=== PATIENT | female | born 2000 | race Two or more races ===

== ENCOUNTER → 2020-07-03 09:58 | Outpatient (BNVA) | payer OTHER, SELFPAY | PROVIDERS: PCP Internal Medicine Sports Medicine; Visit Provider Internal Medicine Pulmonary Disease | DX: J45.50 Severe persistent asthma, uncomplicated (principal); Z79.899 Other long term (current) drug therapy; Z91.09 Other allergy status, other than to drugs and biological substances | CPT/HCPCS: 99212 ==

== ENCOUNTER → 2020-07-25 09:24 | Outpatient (BNVA) | payer OTHER, SELFPAY | PROVIDERS: PCP Internal Medicine Sports Medicine; Visit Provider Internal Medicine Pulmonary Disease | DX: J45.50 Severe persistent asthma, uncomplicated (principal); Z79.899 Other long term (current) drug therapy; Z91.09 Other allergy status, other than to drugs and biological substances | CPT/HCPCS: 99212 ==

== ENCOUNTER → 2020-08-28 14:54 | Outpatient (BNVA) | payer OTHER, SELFPAY | PROVIDERS: PCP Internal Medicine Sports Medicine; Visit Provider Internal Medicine Pulmonary Disease | DX: J45.50 Severe persistent asthma, uncomplicated (principal); Z91.09 Other allergy status, other than to drugs and biological substances | CPT/HCPCS: 99212 ==

== ENCOUNTER → 2020-10-24 10:50 | Outpatient (BNVA) | payer OTHER, SELFPAY | PROVIDERS: PCP Internal Medicine Sports Medicine; Visit Provider Internal Medicine Pulmonary Disease | DX: J45.50 Severe persistent asthma, uncomplicated (principal); Z91.09 Other allergy status, other than to drugs and biological substances | CPT/HCPCS: 99212 ==

== ENCOUNTER → 2021-07-31 15:28 | Outpatient (BNVA) | payer OTHER, SELFPAY | PROVIDERS: PCP Internal Medicine Sports Medicine; Visit Provider Internal Medicine Pulmonary Disease ==

== ENCOUNTER → 2021-09-26 14:34 | Outpatient (BNVA) | payer OTHER, SELFPAY | PROVIDERS: PCP Internal Medicine Sports Medicine; Visit Provider Internal Medicine Pulmonary Disease ==

== ENCOUNTER 2023-08-12 | Outpatient (REF) | payer OTHER, SELFPAY ==
[2023-08-13 11:50] LABS: Appearance Urine Cloudy; Color Urine Yellow; Glucose Urine UA Negative (Negative); Leukocyte Esterase Urine Large (3+) (Negative); Nitrite Urine Negative (Negative); PH 7.5 (5.0-9.0); UMIC TRIGGER UACC YES; Urine Blood Large (3+) (Negative); Urine Ketones Negative (Negative); Urine Protein Trace mg/dL (Neg-Trace)
[2023-08-13 12:47] LABS: Influenza A PCR NEGATIVE (Negative); Influenza B PCR NEGATIVE (Negative); Resp Syncy Virus RNA Qual PCR NEGATIVE (Negative); SARS COV2 PCR INHOUSE NEGATIVE (Negative)
[2023-08-13 14:03] LABS: Bacteria Urine Trace (None Seen); Hyaline Casts Urine 0-2 /LPF (0-2); RBC Urine >20 /HPF (0-2); UACC Culture Trigger YES; WBC Urine 21-50 /HPF (0-5)
== END 2023-08-12 00:01 | disposition home or self-care (01) ==
LOC: HO.HMGCLNP
PROVIDERS: Visit Provider Physician Assistant
DX: Z11.52 Encounter for screening for COVID-19 (principal); Z20.822 Contact with and (suspected) exposure to COVID-19; B34.9 Viral infection, unspecified; R82.90 Unspecified abnormal findings in urine
CPT/HCPCS: 0241U; 81001; 81003; 87086

== ENCOUNTER 2023-08-12 13:49 | Outpatient (AMB) | payer OTHER, SELFPAY ==
--- NOTE | 2023-08-12 15:30 | AM.OFFWIN_ITS ---
Intake Vital Signs 08/12/23 15:31 Height 5 ft 2 in Weight 63.049 kg BMI 25.4 BP 112/68 Blood Pressure Location Lt brachial Position Sitting Pulse 66 Pulse Source Pulse Oximeter Temp 96.7 F L Temp Source Temporal Artery Scan Pulse Oximetry (%) 98 Oxygen Delivery Method Room Air Intake Visit Reasons: EP vomiting headache 2wks [id number] Intake Note: pt is here today for vomoting headache started 2 weeks ago Allergies No Known Allergies Allergy (Verified 08/12/23 15:32) Do you need a note to return to daycare/school/sports/work: Yes HPI HPI Comments History of Present Illness Details 23-year-old who presents with fatigue, m alaise, myalgias, headache, vomiting, nausea, diarrhea, chills that started two weeks ago . Boyfriend sick with similar symptoms a few weeks ago.? Denies chest pain, shortness of breath, nausea, vomiting, abdominal pain, headache vision change, dizziness, weakness, changes in bowel or urinary habits. Patient reports she just can offer. Does not of she is . Physical exam very mild epigastric tenderness History and physical exam concerning for viral illness versus bronchitis versus flu versus COVID versus RSV.? Unlikely pneumonia, ACS, dissection, pulmonary embolism, acute respiratory distress, ICH, stroke, posterior stroke, acute abdomen, appendicitis, cholecystitis, pancreatitis, obstruction. No signs of acute abdomen, appendicitis, cholecystitis, diverticulitis, obstruction, pancreatitis. Epigastric pain likely secondary to nausea vomiting. I did explain to patient that if abdominal pain worsens or changes, she should go to the emergency department. Educated on worrisome signs and symptoms. Plan at this time viral testing will discharge patient home with supportive measures.? Educated patient on diagnosis and treatment plan, answered all question, patient verbalizes understanding.? At this time patient will be discharged home, advised to return with new or worsening symptoms.? Educated on worrisome signs and symptoms and when to return.? At this time I feel comfortable discharge home. Review of Systems Const Details: Constitutional : No Weight loss, + Fever, + Chills, + Fatigue, + Malaise ENT/Mouth : No sore throat, No Rhinorrhea Eyes: No Eye Pain, No Swelling, No Redness Cardiovascular : No Chest Pain, No SOB, No Dyspnea on Exertion, No Orthopnea, No Edema, No Palpitations Respiratory : No Cough, No Sputum, No Wheezing Gastrointestinal : No Nausea, + Vomiting, No Diarrhea, No Constipation, No abdominal Pain, No Hematochezia, No Melena Genitourinary : No Dysuria, No Urinary Frequency, No Hematuria, Musculoskeletal : No joint pain, No Myalgias, No Joint Swelling Skin : No Skin Lesions, No rash Neuro : No Weakness, No Numbness, No Dizziness, + Headache Psych : No Anxiety/Panic, No Depression All other systems reviewed and are negative All systems reviewed & are unremarkable except as noted in HPI and below Physical Exam Vital Signs: Last Vital Signs Temp 96.7 F L 08/12/23 15:31 Pulse 66 08/12/23 15:31 BP 112/68 08/12/23 15:31 Pulse Ox 98 08/12/23 15:31 Oxygen Delivery Method Room Air 08/12/23 15:31 BMI result Body Mass Index 25.4 vss Appearance: Alert.? Oriented X3.? No acute distress.? Head: Normocephalic, atraumatic, no step-offs or deformities Eyes: Pupils equal, round and reactive to light.? ENT: Pharynx normal.? Neck: Normal inspection.? Neck supple.? CVS: Normal heart rate and rhythm.? Pulses normal.? Respiratory: No respiratory distress.? Breath sounds normal.? Abdomen: Soft and mild tenderness/ soreness in epigatric region.? Negative Rovsing, McBurney's, Bella's. Normal bowel sounds Skin: Skin warm and dry.? Normal skin color.? Normal skin turgor.? Extremities: No lower extremity edema.? No calf ttp. 5/5 strength to bilateral upper and lower extremities Neuro: Oriented X 3.? No motor deficit.? No sensory deficit. CN 2-12 intact Assessment & Plan Assessment & Plan (1) Viral illness: Code(s): B34.9 - Viral infection, unspecified Plan Take your medications as prescribed. If you were prescribed antibiotics today, it is important that you take your medication to their entirety, do not skip any doses, do not finish them early. Follow-up with your primary care provider this week. Return to the emergency department with new or worsening symptoms. Such as fevers, chills, chest pain, shortness of breath, nausea, vomiting, dizziness, headache, vision changes, lethargy In case of emergency call 911 Orders: Orders SARS-CoV2/FLU/RSV Today B34.9 - Viral infection, unspecified UA CC w/rflx Micro + Cult Today B34.9 - Viral infection, unspecified Coding Level of Care Code Est Pt Level 3 (73391) Diagnoses Viral illness B34.9
[2023-08-12 15:31] VITALS: BP 112/68; PULSE 66; TEMP 35.9; O2SAT 98; BMI 25.4
== END 2023-08-12 16:19 | disposition home or self-care (01) ==
PROVIDERS: PCP Internal Medicine Sports Medicine; Visit Provider Physician Assistant
DX: B34.9 Viral infection, unspecified (principal); Z32.02 Encounter for pregnancy test, result negative
CPT/HCPCS: 81003; 81025; 99213

== ENCOUNTER 2023-09-30 10:21 | Outpatient (AMB) | payer OTHER, SELFPAY ==
[2023-09-30 10:23] VITALS: BP 96/60; PULSE 108; O2SAT 98; BMI 25.4
--- NOTE | 2023-09-30 10:23 | MHC.OFFVIS ---
Intake Vital Signs 09/30/23 10:23 Height 5 ft 2 in Weight 138 lb 14.259 oz BMI 25.4 BP 96/60 Blood Pressure Location Rt brachial Position Sitting Pulse 108 H Pulse Source Doppler Pulse Oximetry (%) 98 Oxygen Delivery Method Room Air Intake Visit Reasons: asthma Allergies No Known Allergies Allergy (Verified 09/30/23 10:29) HPI asthma HPI Details 23-year-old lady, nonsmoker, followed for underlying severe persistent allergic asthma and environmental allergies. Patient has been approved for Xolair, however she decided not to go ahead with injections and she continued on Symbicort, duo nebs, and albuterol MDI with good control of her symptoms. Unfortunately, her insurance is no longer covering Symbicort. She denies any recent exacerbations. [facility] Social History (Updated 09/30/23 @ 10:27 by Mell Kam [facility]) Patient Tobacco Use Status: Never used Tobacco Tobacco use type: Cigarette Review of Systems Const Denies daytime sleepiness, Denies excessive sweating, Denies fatigue, Denies fever(s), Denies lethargy, Denies malaise, Denies night sweats, Denies snoring and Denies weight loss Eyes Denies blurry vision and Denies itchy eyes ENT Denies nasal congestion, Denies post nasal drip, Denies sinus pain, Denies sinus pressure and Denies other ( Thrush) Card Denies chest pain, Denies pedal edema, Denies dyspnea, Denies orthopnea and Denies paroxysmal nocturnal dyspnea Resp Denies cough, Denies hemoptysis, Denies excessive phlegm production, Denies dyspnea, Denies snoring and Denies wheezing GI Denies abdominal pain and Denies heartburn Musc Denies myalgias, Denies arthralgias and Denies joint swelling Skin/Breast Denies rash Neuro Denies memory loss and Denies seizure-like activity Psych Denies abnormal sleep pattern, Denies anxiety and Denies memory loss Endo Denies excessive sweating, Denies fatigue and Denies heat intolerance Param/Lymph Denies easy bruising Aller/Immun Denies itchy eyes, Denies seasonal rhinorrhea and Denies wheezing Physical Exam Vital Signs: Last Vital Signs Pulse 108 H 09/30/23 10:23 BP 96/60 09/30/23 10:23 Pulse Ox 98 09/30/23 10:23 Oxygen Delivery Method Room Air 09/30/23 10:23 BMI result Body Mass Index 25.4 Const General: no acute distress and alert Nutritional Appearance: not obese Orientation/consciousness: Other orientation findings ( oriented) HEENT Head: Yes atraumatic Eyes General: appearance normal, both eyes and all related structures Sclerae: sclerae normal EOM: EOMs intact bilaterally Neck Neck: Yes supple Lymphatic: no lymphadenopathy noted Resp Effort & Inspection: normal respiratory effort and no use of accessory muscles Auscultation: clear to auscultation bilaterally Cardio Rate: regular rate Rhythm: regular rhythm Heart sounds: no gallops, no murmurs and no rubs Skin General skin exam: other ( warm) Extrem General: No clubbing, No cyanosis and No edema Assessment & Plan Assessment & Plan (1) Severe persistent allergic asthma: Code(s): J45.50 - Severe persistent asthma, uncomplicated Plan: Good control on Symbicort, albuterol MDI, nebs. Secondary to insurance reasons will switch Symbicort to Advair HFA 230. Continue albuterol MDI/nebs. (2) Environmental allergies: Code(s): Z91.09 - Other allergy status, other than to drugs and biological substances Plan: Well controlled. Continue on Singulair. Medications: New fluticasone propion-salmeterol 230-21 mcg/actuation (Advair HFA) 2 puffs inhalation BID 12 grams 6RF 30 days Discontinued Symbicort 160-4.5 mcg/actuation (budesonide-formoterol) Discontinued Reason: Doctor's Order 2 puffs inhalation BID 90 days 30.6 grams 6RF NS Coding Level of Care Code Est Pt Level 4 (38593) Diagnoses Severe persistent allergic asthma J45.50 Environmental allergies Z91.09
== END 2023-09-30 10:32 | disposition home or self-care (01) ==
PROVIDERS: PCP Internal Medicine Sports Medicine; Visit Provider Internal Medicine Pulmonary Disease
DX: J45.50 Severe persistent asthma, uncomplicated (principal); Z91.09 Other allergy status, other than to drugs and biological substances
CPT/HCPCS: 99214

== ENCOUNTER → 2023-09-30 10:21 | Outpatient (BNVA) | payer OTHER, SELFPAY | PROVIDERS: PCP Internal Medicine Sports Medicine; Visit Provider Internal Medicine Pulmonary Disease ==

== ENCOUNTER 2024-05-31 08:12 | Outpatient (AMB) | payer OTHER, SELFPAY ==
[2024-05-31 09:37] VITALS: BP 120/80; PULSE 62; TEMP 36.6; O2SAT 100; BMI 25.6
--- NOTE | 2024-05-31 09:37 | AM.OFFWIN_ITS ---
Intake Vital Signs 05/31/24 09:37 Height 5 ft 2 in Weight 140 lb BMI 25.6 BP 120/80 Blood Pressure Location Lt brachial Position Sitting Pulse 62 Pulse Source Pulse Oximeter Temp 97.9 F Temp Source Temporal Artery Scan Pulse Oximetry (%) 100 Intake Visit Reasons: EP eye infection on lash line? LT eye swelling Intake Note: pt is here eye infection in lashline due to possible lash extension Patient Tobacco Use Status: Never used Tobacco Allergies No Known Allergies Allergy (Verified 05/31/24 09:38) Do you need a note to return to daycare/school/sports/work: No HPI EP eye infection on lash line? LT eye swelling HPI Details This note is constructed using voice recognition software. While every effort has been made to ensure accuracy, search engine optimization analyst errors may have been included. The patient is a 23 year old female who presents to the clinic today with left upper eyelid swelling since yesterday. She notes that she just had artificial eyelash extensions placed, and the symptoms developed shortly after. She has no pain, no discharge, no itch. She denies any change in her vision or ability to see. She denies fever, chills, cough, shortness of breath, or other URI symptoms. She does not wear contacts or glasses. [facility] Social History (Updated 09/30/23 @ 10:27 by VIOLETTA Brown) Patient Tobacco Use Status: Never used Tobacco Tobacco use type: Cigarette Review of Systems Const All systems reviewed & are unremarkable except as noted in HPI and below Physical Exam Vital Signs: Last Vital Signs Temp 97.9 F 05/31/24 09:37 Pulse 62 05/31/24 09:37 BP 120/80 05/31/24 09:37 Pulse Ox 100 05/31/24 09:37 BMI result Body Mass Index 25.6 Const General: cooperative, healthy appearing, comfortable, no acute distress and well developed Orientation/consciousness: patient oriented x3 Limitations: no limitations Eyes Other: Hordeolum present to left upper eyelid Visual Busby: normal visual busby by confrontation Conjunctivae: conjunctivae normal Sclerae: sclerae normal Corneas: corneas normal Pupils: Equal, round and reactive pupils present EOM: EOMs intact bilaterally Direct Ophthalmoscopy: normal light reflex and no photophobia Resp Effort & Inspection: normal respiratory effort and able to speak in complete sentences Neuro General: patient oriented x3 Cranial nerves: Yes Equal, round and reactive pupils present Assessment & Plan Assessment & Plan (1) Hordeolum externum left upper eyelid: Code(s): H00.014 - Hordeolum externum left upper eyelid Plan: Advised consideration of removal eyelash extensions. Advised warm compresses minimum 4 times per day. Erythromycin ointment prescribed for symptomatic management. Advised follow up with worsening or failure to resolve. Plan See above for full details and plan. Medications: New erythromycin 0.5 inches ophthalmic (eye) TID 7 days 3.5 grams 0RF Coding Level of Care Code Est Pt Level 3 (56036) Diagnoses Hordeolum externum left upper eyelid H00.014
== END 2024-05-31 10:24 | disposition home or self-care (01) ==
PROVIDERS: PCP Internal Medicine Sports Medicine; Visit Provider Registered Nurse
DX: H00.014 Hordeolum externum left upper eyelid (principal)

== ENCOUNTER → 2024-05-31 08:12 | Outpatient (BNVA) | payer OTHER, SELFPAY | PROVIDERS: PCP Internal Medicine Sports Medicine ==

== ENCOUNTER 2024-10-01 13:03 | Outpatient (AMB) | payer OTHER, SELFPAY ==
[2024-10-01 13:07] VITALS: BP 102/70; PULSE 86; O2SAT 100; BMI 25.4
--- NOTE | 2024-10-01 13:07 | A.OFFVIS_ITS ---
Vital Signs 10/01/24 13:07 Height 5 ft 2 in Weight 138 lb 14.259 oz BMI 25.4 BP 102/70 Blood Pressure Location Lt brachial Position Sitting Pulse 86 Pulse Source Pulse Oximeter Pulse Oximetry (%) 100 Oxygen Delivery Method Room Air Intake Visit Reasons: asthma Electrophysiology Technician Required: No Allergies No Known Allergies Allergy (Verified 10/01/24 13:09) HPI HPI asthma: Details: 24-year-old lady, nonsmoker, followed for underlying severe persistent allergic asthma and environmental allergies. Patient has been approved for Xolair, however she decided not to go ahead with injections and she continued on Breo, duo nebs, and albuterol MDI. Unfortunately, recently she she had to be switched to Symbicort for insurance reasons with significantly worsening symptom control. Patient also had exacerbation of her asthma in the beginning of the months from which she has recovered to baseline. [facility] Social History Patient Tobacco Use Status: Never used Tobacco Tobacco use type: Cigarette Review of Systems Const Denies daytime sleepiness, Denies excessive sweating, Denies fatigue, Denies fever(s), Denies lethargy, Denies malaise, Denies night sweats, Denies snoring and Denies weight loss Eyes Denies blurry vision and Denies itchy eyes ENT Denies nasal congestion, Denies post nasal drip, Denies sinus pain, Denies sinus pressure and Denies other ( Thrush) Card Denies chest pain, Denies pedal edema, Denies dyspnea, Denies orthopnea and Denies paroxysmal nocturnal dyspnea Resp Denies cough, Denies hemoptysis, Denies excessive phlegm production, Denies dyspnea, Denies snoring and Denies wheezing GI Denies abdominal pain and Denies heartburn Musc Denies myalgias, Denies arthralgias and Denies joint swelling Skin/Breast Denies rash Neuro Denies memory loss and Denies seizure-like activity Psych Denies abnormal sleep pattern, Denies anxiety and Denies memory loss Endo Denies excessive sweating, Denies fatigue and Denies heat intolerance Param/Lymph Denies easy bruising Aller/Immun Denies itchy eyes, Denies seasonal rhinorrhea and Denies wheezing Physical Exam Vital Signs: Last Vital Signs Pulse 86 10/01/24 13:07 BP 102/70 10/01/24 13:07 Pulse Ox 100 10/01/24 13:07 Oxygen Delivery Method Room Air 10/01/24 13:07 BMI result Body Mass Index 25.4 Const General: no acute distress and alert Nutritional Appearance: not obese Orientation/consciousness: Other orientation findings ( oriented) HEENT Head: Yes atraumatic Eyes General: appearance normal, both eyes and all related structures Sclerae: sclerae normal EOM: EOMs intact bilaterally Neck Neck: Yes supple Lymphatic: no lymphadenopathy noted Resp Effort & Inspection: normal respiratory effort and no use of accessory muscles Auscultation: clear to auscultation bilaterally Cardio Rate: regular rate Rhythm: regular rhythm Heart sounds: no gallops, no murmurs and no rubs Skin General skin exam: other ( warm) Extrem General: No clubbing, No cyanosis and No edema Assessment & Plan Assessment & Plan (1) Severe persistent allergic asthma: Code(s): J45.50 - Severe persistent asthma, uncomplicated Category: Medical Plan: Poor control on Symbicort, switch to Breo as it was providing better control prior. Continue albuterol MDI, duo nebs, and Singulair. (2) Environmental allergies: Code(s): Z91.09 - Other allergy status, other than to drugs and biological substances Category: Medical Plan: Suboptimal control on Singulair, if fails to be controlled, may readdress Xolair. Medications: New montelukast 10 mg PO BEDTIME 30 tabs 6RF fluticasone furoate-vilanterol 200-25 mcg/dose (Breo Ellipta) 1 inh inhalation DAILY 1 ea 6RF Refilled ipratropium-albuterol 0.5 mg-3 mg(2.5 mg base)/3 mL 3 mL inhalation Q4-6H PRN 180 mL 6RF wheezing 30 days J45.50 - Severe persistent asthma, uncomplicated albuterol sulfate 90 mcg/actuation 2 puffs inhalation Q4-6H PRN 1 ea 6RF shortness of breath or wheezing 30 days J45.50 - Severe persistent asthma, uncomplicated Discontinued budesonide-formoterol 160-4.5 mcg/actuation (Symbicort) Discontinued Reason: Doctor's Order 2 puffs inhalation BID 10.2 grams 6RF Coding Level of Care Code Est Pt Level 4 (10544) Diagnoses Severe persistent allergic asthma J45.50 Environmental allergies Z91.09
--- OUTSIDE RECORDS SUMMARY | 2024-10-01 13:17 | XMS_ITS | Clinical Summary ---
Author Organization [facility] Address [address] [place] [phone] Phone Care Team Providers Care Bobbin Coil Winder Name Role Phone Unavailable Primary Care Provider Unavailabl e Immunizations Name Administration Dates Next Due DTaP 08/08/2003, 1,01/11/2000,11/01,1999 H1N1 07/04/2009 HPV, Quadrivalent 10/14/2012,06/04/2012,03/26/20 12 Hep B, ped/adol 12/09/2000,03/31/2000,01/11/2000 Hib (PRP-T) 09/05/2000, 0,1999,09/18 IPV 08/08/2003, 1,1999,09/18 Influenza 07/24/2009,09/10/2005,07/30/2002 Influenza, injectable, quadr ivalent, preservative free 06/11/2014 Influenza, injectable, trivalent 05/21/2012,08/01 MMR 08/30/2004,09/05/2000 Meningococcal Conj (Menactra) MCV4P 04/21/2017,0 03/26/2011 Pneumococcal Conjugate 07/03/2001,09/05/2000, Pneumococcal Polysaccharide 03/31/2000 Tdap 03/26/2011 Varicella 01/08/2008,07/03/2000 Family History Relation Name Status Comments Maternal Grandfather Materna l Uncle: depression Maternal Grandmother Materna l Aunt: asthma, Type 2 diabetes, bipolar, anxiety, migraine, premature , miscarriage Mother Mother: allergi es, asthma, miscarriage Other Siblings: broth er: asthma Social History Tobacco Use Types Packs/Day Years Used Date Smoking Tobacco: Never Assessed Comments Unknown Sex and Gender Information Value Date Recorded Sex Assigned at Not on file Legal Sex Female 9:57 AM EST Gender Identity Not on file Sexual Orientation Not on file Last Filed Vital Signs Vital Sign Reading Time Taken Comments Blood Pressure 98/59 04/21/2017 12:00 AM EDT Pulse 81 04/21/2017 12:00 AM EDT Temperature 37.2 ??C (98.9 ??F) 05/29/2015 12:00 AM E DT Respiratory Rate - - Oxygen Saturation 95% 12/02/2016 12:00 AM EDT Inhaled Oxygen Concentration - - Weight 62.6 kg (138 lb) 04/21/2017 12:00 AM EDT Height 156.2 cm (5' 1.5 ) 04/21/2017 12:00 AM ED T Body Mass Index 25.65 04/21/2017 12:00 AM EDT Plan of Treatment Health Maintenance Due Date Last Done Comments DTaP,Tdap,and Td Vaccines (7 - Td or Tdap) 03/26/2021 03/26/2011, 08/08/2003, 12/09/2000, Additional history exists Influenza Vaccines (#1) 2024 06/11/20 14, 05/21/2012, 08/14/2011, Additional history exists COVID-19 Vaccine ( season) 2024 HIB Vaccines Completed 09/05/2000, 12/30, 1999, Additional history exists Hepatitis B Vaccines Completed 12/09/2000, 03/31/2000, 01/11/2000 Pneumococcal Vaccine Completed 07/03/2001, 09/05/2000, 06/26/2000, Additional history exists IPV Vaccines Completed 08/08/2003, 12/2000, 1999, Additional history exists MMR Vaccines Completed 08/30/2004, 09/05/2000 Varicella Vaccines Completed 01/08/2008, 07/03/2000 HPV Vaccines Completed 10/14/2012, 12/2011, 03/26/2012 Meningococcal Vaccine Completed 04/21/2017, 011 Hepatitis A Vaccines Aged Out No long er eligible based on patient's age to complete this topic Men B Vaccine Aged Out No longer elig ible based on patient's age to complete this topic Procedures * Due to [place] state law, this organization might not be sharing sensitive test results. Procedure Name Priority Date/Time Associated Diagnosis Comments CHLAMYDIA TRACHOMATIS, AMPLIFIED Routine 04/22/2017 12:00 AM EDT from Last 3 Months or Most Recently Relevant to Health Maintenance Results * Due to [place] [employer] law, this organization might not be sharing sensitive test results. * Chlamydia trachomatis, Amplified (04/22/2017 12:00 AM EDT) C.TRACHOMATIS PCR Not Detected CONVERTED LABS Comment: Sulma Kay ??04/21/2017 12:01:46 PM > , Specimen labeled and sent to [facility] Negative Reason: Received -[facility] Lab Order Louver Mortiser Operator 04/22/2017 Narrative CONVERTED LABS - 04/22/2017 12:00 AM EDT Chlamydia trachomatis detection by PCR us Sherie Bowser MD LAB BLOOD ORDERABLES Final Res ult CONVERTED LABS from Last 3 Months or Most Recently Relevant to Health Maintenance
--- OUTSIDE RECORDS SUMMARY | 2024-10-01 13:17 | XMS_ITS | Clinical Summary ---
Author Organization [facility] ity Address [address] [place] [address] Care Team Providers Care Non Profit Director Name Role Phone Marek Serrano MD Primary Care Provider Allergies No known active allergies Medications Medication Sig Dispensed Refills Start Date End Date Status albuterol HFA (PROAIR HFA ; PROVENTIL HFA ; VENTOLIN HFA) 90 mcg/actuation inhaler Inhale 2 puffs by mouth every 4 (four) hours if needed. Active budesonide-formoteroL (SYMBICORT) 160-4.5 mcg/actuation inhaler Inhale 2 Puffs into the lungs 2 times daily. 08/30/2020 Active fluticasone propion-salmeteroL (AirDuo Digihaler) 232-14 mcg/actuation aero powdr breath act w/sensor inhaler Inhale 1 Inhaler into the lungs 2 times daily. 07/31/2020 Active montelukast (SINGULAIR) 10 mg tablet Take 1 Tab by mouth at bedtime. 07/31/2020 Active omalizumab (Xolair) 75 mg/0.5 mL syringe subcutaneous syringe Inject into the skin. 10/25/2020 Active sertraline (ZOLOFT) 50 mg tablet Start with 1/2 tablet qam x 1 week, then increase to 1 tablet qam 05/23/2020 Active Active Problems Problem Noted Date Diagnosed Date Allergies 08/20/2024 Depression 08/20/2024 Eczema 08/20/2024 Right tubal 05/23/2020 Asthma 10/25/2019 Immunizations Name Administration Dates Next Due HPV, Quadrivalent 01/05/2018 Meningococcal MCV4P 04/21/2017 Tdap Tetanus diptheria acell ular pertussis (Boostrix; Adacel) 7yo and older 03/26/2011 Surgical History Surgery Date Site/Laterality Comments OTHER SURGICAL HISTORY PROCEDURE: DENIES PREVIOUS SURGERY OTHER SURGICAL HISTORY PROCEDURE: [place] ECTOPIC CERVICAL W/EVACUATION OTHER SURGICAL HISTORY PROCEDURE: HISTORICAL ESSURE (BILATERAL OCCLUSION FALLOPIAN TUBES-PERMA); COMMENT: removed rigth fallopian tube Medical History Medical History Date Comments Asthma DX:Asthma Allergies DX:Allergies Eczema DX:Eczema Depression DX:Depression Family History Medical History Relation Name Comments Diabetes Maternal Grandmother Hyperlipidemia Maternal Grandmother Relation Name Status Comments Maternal Grandmother Social History Tobacco Use Types Packs/Day Years Used Date Smoking Tobacco: Never Smokeless Tobacco: Never Alcohol Use Standard Drinks/Week Comments Yes 0 (1 standard drink = 0.6 oz pur e alcohol) Sex and Gender Information Value Date Recorded Sex Assigned at Not on file Gender Identity Not on file Sexual Orientation Not on file Obstetrics History Plan of Treatment Health Maintenance Due Date Last Done Comments Pneumococcal Vaccine: Pediat rics (0 to 5 Years) and At-Risk Patients (6 to 64 Years) (1 of 2 - PCV) 2005 HPV Vaccines (2 - 3-dose series) 02/02/2018 01/06/20 18 Hepatitis B Vaccines (1 of 3 - 19+ 3-dose series) 2018 Cervical Cancer Screening: P ap Smear 2020 DTaP,Tdap,and Td Vaccines (2 - Td or Tdap) 03/26/2021 03/26/2011 Depression Screening 07/31/2022 HIV Screening 07/31/2022 Hepatitis C Screening 07/31/2022 Social Influencers of Health Screening 07/31/2022 COVID-19 Vaccine ( - 2023-2 5 season) 2024 Influenza Vaccine (#1) 2024 Cholesterol Screening (Lipid Panel) 05/01/2025 05/01/2020 Meningococcal ACWY Vaccine Completed 04/21/2017 Gonorrhea/Chlamydia Screening Discontinued 05/01/2020 HIB Vaccines Aged Out No longer eligi ble based on patient's age to complete this topic Hepatitis A Vaccines Aged Out No long er eligible based on patient's age to complete this topic IPV Vaccines Aged Out No longer eligi ble based on patient's age to complete this topic MMR Vaccines Aged Out No longer eligi ble based on patient's age to complete this topic RSV Immunization Patients Un denny 20 months Aged Out No longer eligible b ased on patient's age to complete this topic Varicella Vaccines Aged Out No longer eligible based on patient's age to complete this topic Procedures Procedure Name Priority Date/Time Associated Diagnosis Comments LIPID PANEL Routine 05/01/2020 GONORRHEA/CHLAMYDIA SCRREENING Routine 05/01/2020 from Last 3 Months or Most Recently Relevant to Health Maintenance Results * Gonorrhea/Chlamydia Screening (05/01/2020) Gonorrhea/Chla mydia Screening abstracted Historical Provider [facility] * (ABNORMAL) Lipid panel (05/01/2020) LDL/HDL Ratio 3 0 - 4 Triglycerides 79 0 - 150 mg/dL Cholesterol 173 0 - 200 mg/dL HDL 55 40 mg/dL LDL Cholesterol 103(A) 0 - 100 mg/dL Blood Venous blood specimen / Unknown Historical Provider LAB BLOOD ORDERAB LES from Last 3 Months or Most Recently Relevant to Health Maintenance Care Teams Non Profit Director Relationship Specialty Start Date End Date Marek Serrano MD [address] [place] [address] PCP - General 08/28/23
--- OUTSIDE RECORDS SUMMARY | 2024-10-01 13:17 | XMS_ITS | Encounter Summary ---
Author Organization [facility] Address [address] [place] [address] Phone Care Team Providers Care Job Analyst Name Role Phone Sherie Bowser MD Primary Care Provider [phone] Encounter Details Date Type Department Care Team (Late st Contact Info) Description 04/09/2017 Conversion Encounter [facility] Pediatric[facility] - [address], [address] [place] [address] Sherie Bowser MD [address] [place] [address] Social History Tobacco Use Types Packs/Day Years Used Date Smoking Tobacco: Never Assessed Comments Unknown Sex and Gender Information Value Date Recorded Sex Assigned at Not on file Legal Sex Female 9:57 AM EST Gender Identity Not on file Sexual Orientation Not on file documented as of this encounter Plan of Treatment Not on file documented as of this encounter Visit Diagnoses Not on filedocumented in this encounter Care Teams Job Analyst Relationship Specialty Start Date End Date Sherie Bowser MD [address] [place] [address] PCP - General 10/22/16 08/31/20 documented as of this encounter
== END 2024-10-01 13:33 | disposition home or self-care (01) ==
PROVIDERS: PCP Internal Medicine Sports Medicine; Visit Provider Internal Medicine Pulmonary Disease
DX: J45.50 Severe persistent asthma, uncomplicated (principal); Z91.09 Other allergy status, other than to drugs and biological substances
CPT/HCPCS: 99214

== ENCOUNTER → 2024-10-01 13:03 | Outpatient (BNVA) | payer OTHER, SELFPAY | PROVIDERS: PCP Internal Medicine Sports Medicine; Visit Provider Internal Medicine Pulmonary Disease ==

== ENCOUNTER 2024-11-26 13:15 | Outpatient (AMB) | payer OTHER, SELFPAY ==
[2024-11-26 13:22] VITALS: BP 108/67; PULSE 95; O2SAT 97; BMI 25.2
--- NOTE | 2024-11-26 13:22 | MHC.OFFVIS ---
Vital Signs 11/26/24 13:22 Height 5 ft 2 in Weight 138 lb BMI 25.2 BP 108/67 Blood Pressure Location Rt brachial Position Sitting Pulse 95 Pulse Source Doppler Pulse Oximetry (%) 97 Oxygen Delivery Method Room Air Intake Visit Reasons: Asthma Allergies No Known Allergies Allergy (Verified 11/26/24 13:27) HPI HPI Asthma: Details: 24-year-old lady, nonsmoker, followed for underlying severe persistent allergic asthma and environmental allergies. Patient has been approved for Xolair, however she decided not to go ahead with injections and now she continues on Symbicort, Singulair, and albuterol MDI/duo nebs with good control of her symptoms. She denies recent exacerbations. [facility] Social History Patient Tobacco Use Status: Never used Tobacco Tobacco use type: Cigarette Review of Systems Const Denies daytime sleepiness, Denies excessive sweating, Denies fatigue, Denies fever(s), Denies lethargy, Denies malaise, Denies night sweats, Denies snoring and Denies weight loss Eyes Denies blurry vision and Denies itchy eyes ENT Denies nasal congestion, Denies post nasal drip, Denies sinus pain, Denies sinus pressure and Denies other ( Thrush) Card Denies chest pain, Denies pedal edema, Denies dyspnea, Denies orthopnea and Denies paroxysmal nocturnal dyspnea Resp Denies cough, Denies hemoptysis, Denies excessive phlegm production, Denies dyspnea, Denies snoring and Denies wheezing GI Denies abdominal pain and Denies heartburn Musc Denies myalgias, Denies arthralgias and Denies joint swelling Skin/Breast Denies rash Neuro Denies memory loss and Denies seizure-like activity Psych Denies abnormal sleep pattern, Denies anxiety and Denies memory loss Endo Denies excessive sweating, Denies fatigue and Denies heat intolerance Param/Lymph Denies easy bruising Aller/Immun Denies itchy eyes, Denies seasonal rhinorrhea and Denies wheezing Physical Exam Vital Signs: Last Vital Signs Pulse 95 11/26/24 13:22 BP 108/67 11/26/24 13:22 Pulse Ox 97 11/26/24 13:22 Oxygen Delivery Method Room Air 11/26/24 13:22 BMI result Body Mass Index 25.2 Const General: no acute distress and alert Nutritional Appearance: not obese Orientation/consciousness: Other orientation findings ( oriented) HEENT Head: Yes atraumatic Eyes General: appearance normal, both eyes and all related structures Sclerae: sclerae normal EOM: EOMs intact bilaterally Neck Neck: Yes supple Lymphatic: no lymphadenopathy noted Resp Effort & Inspection: normal respiratory effort and no use of accessory muscles Auscultation: clear to auscultation bilaterally Cardio Rate: regular rate Rhythm: regular rhythm Heart sounds: no gallops, no murmurs and no rubs Skin General skin exam: other ( warm) Extrem General: No clubbing, No cyanosis and No edema Assessment & Plan Assessment & Plan (1) Severe persistent allergic asthma: Code(s): J45.50 - Severe persistent asthma, uncomplicated Category: Medical Plan: Well controlled on current regimen of Symbicort, duo nebs, and albuterol MDI. Continue current regimen. (2) Environmental allergies: Code(s): Z91.09 - Other allergy status, other than to drugs and biological substances Category: Medical Plan: Well controlled on Singulair. Continue current regimen. Coding Level of Care Code Est Pt Level 4 (93833) Diagnoses Severe persistent allergic asthma J45.50 Environmental allergies Z91.09
== END 2024-11-26 13:36 | disposition home or self-care (01) ==
LOC: HO.HPS 13:16
PROVIDERS: PCP Internal Medicine Sports Medicine; Visit Provider Internal Medicine Pulmonary Disease
DX: J45.50 Severe persistent asthma, uncomplicated (principal); Z91.09 Other allergy status, other than to drugs and biological substances
CPT/HCPCS: 99214

== ENCOUNTER 2025-07-22 13:32 | Outpatient (AMB) | payer OTHER, MEDICAID, SELFPAY ==
[2025-07-22 13:33] VITALS: BP 102/60; PULSE 97; O2SAT 98; BMI 28.3
--- NOTE | 2025-07-22 13:33 | MHC.OFFVIS ---
Vital Signs 07/22/25 13:33 Height 5 ft 2 in Weight 155 lb BMI 28.3 BP 102/60 Blood Pressure Location Lt brachial Position Sitting Pulse 97 Pulse Source Pulse Oximeter Pulse Oximetry (%) 98 Oxygen Delivery Method Room Air Intake Visit Reasons: Asthma Allergies No Known Allergies Allergy (Verified 07/22/25 13:37) HPI HPI Asthma: Details: 25-year-old lady, nonsmoker, followed for underlying severe persistent allergic asthma and environmental allergies. Patient has been approved for Xolair, however she decided not to go ahead with injections and now she continues on Symbicort, Singulair, and albuterol MDI/duo nebs with good control of her symptoms. She denies recent exacerbations. No significant changes since prior. [facility] Social History Patient Tobacco Use Status: Never used Tobacco Tobacco use type: Cigarette Review of Systems Const Denies daytime sleepiness, Denies excessive sweating, Denies fatigue, Denies fever(s), Denies lethargy, Denies malaise, Denies night sweats, Denies snoring and Denies weight loss Eyes Denies blurry vision and Denies itchy eyes ENT Denies nasal congestion, Denies post nasal drip, Denies sinus pain, Denies sinus pressure and Denies other ( Thrush) Card Denies chest pain, Denies pedal edema, Denies dyspnea, Denies orthopnea and Denies paroxysmal nocturnal dyspnea Resp Denies cough, Denies hemoptysis, Denies excessive phlegm production, Denies dyspnea, Denies snoring and Denies wheezing GI Denies abdominal pain and Denies heartburn Musc Denies myalgias, Denies arthralgias and Denies joint swelling Skin/Breast Denies rash Neuro Denies memory loss and Denies seizure-like activity Psych Denies abnormal sleep pattern, Denies anxiety and Denies memory loss Endo Denies excessive sweating, Denies fatigue and Denies heat intolerance Param/Lymph Denies easy bruising Aller/Immun Denies itchy eyes, Denies seasonal rhinorrhea and Denies wheezing Physical Exam Vital Signs: Last Vital Signs Pulse 97 07/22/25 13:33 BP 102/60 07/22/25 13:33 Pulse Ox 98 07/22/25 13:33 Oxygen Delivery Method Room Air 07/22/25 13:33 BMI result Body Mass Index 28.3 Const General: no acute distress and alert Nutritional Appearance: not obese Orientation/consciousness: Other orientation findings ( oriented) HEENT Head: Yes atraumatic Eyes General: appearance normal, both eyes and all related structures Sclerae: sclerae normal EOM: EOMs intact bilaterally Neck Neck: Yes supple Lymphatic: no lymphadenopathy noted Resp Effort & Inspection: normal respiratory effort and no use of accessory muscles Auscultation: clear to auscultation bilaterally Cardio Rate: regular rate Rhythm: regular rhythm Heart sounds: no gallops, no murmurs and no rubs Skin General skin exam: other ( warm) Extrem General: No clubbing, No cyanosis and No edema Assessment & Plan Assessment & Plan (1) Severe persistent allergic asthma: Code(s): J45.50 - Severe persistent asthma, uncomplicated Category: Medical Plan: Well controlled on current regimen of Symbicort, duo nebs, and albuterol MDI/nebs. Continue current regimen. (2) Environmental allergies: Code(s): Z91.09 - Other allergy status, other than to drugs and biological substances Category: Medical Plan: Controlled on Singulair. Continue current regimen. Medications: Refilled ipratropium-albuterol 0.5 mg-3 mg(2.5 mg base)/3 mL 3 mL inhalation Q4-6H PRN 180 mL 6RF wheezing 30 days J45.50 - Severe persistent asthma, uncomplicated Coding Level of Care Code Est Pt Level 4 (41083) Diagnoses Severe persistent allergic asthma J45.50 Environmental allergies Z91.09
--- OUTSIDE RECORDS SUMMARY | 2025-07-22 13:52 | XMS_ITS | Clinical Summary ---
Author Organization [facility] Address [address] [place] [address] Phone Care Team Providers Care Grinder Needle Tip Name Role Phone Marek Serrano MD Primary Care Provider Allergies No known active allergies Medications albuterol HFA (PROAIR HFA ; PROVENTIL HFA ; VENTOLIN HFA) 90 mcg/actuation inhaler Inhale 2 puffs by mouth every 4 (four) hours if needed. Active budesonide-formot [place] (SYMBICORT) 160-4.5 mcg/actuation inhaler Inhale 2 Puffs into the lungs 2 times daily. 0 Active fluticasone propion-salmetero L (AirDuo Digihaler) 232-14 mcg/actuation aero powdr breath act w/sensor inhaler Inhale 1 Inhaler into the lungs 2 times daily. 0 Active montelukast (SINGULAIR) 10 mg tablet Take 1 Tab by mouth at bedtime. 0 Active omalizumab (Xolair) 75 mg/0.5 mL syringe subcutaneous syringe Inject into the skin. 1 Active sertraline (ZOLOFT) 50 mg tablet Start with 1/2 tablet qam x 1 week, then increase to 1 tablet qam 0 Active albuterol HFA (PROAIR HFA ; PROVENTIL HFA ; VENTOLIN HFA) 90 mcg/actuation inhaler Inhale 2 puffs by mouth every 6 (six) hours if needed for wheezing. 6.7 g 5 05/31/20 26 Active Active Problems Problem Noted Date Diagnosed Date Allergies 08/20/2024 Depression 08/20/2024 Eczema 08/20/2024 Right tubal 05/23/2020 Asthma 10/25/2019 Encounters Date Type Department Care Team Description 05/31/2025 7:25 AM EDT - 05/31/2025 8:27 AM EDT Emergency [facility] Emergency [address] [place] [address] Mild intermittent asthma with exacerbation (Primary Dx) Discharge Disposition: Home or Self Care from Last 3 Months Immunizations Immunization Administration Dates Next Due HPV, Quadrivalent 01/05/2018 Meningococcal MCV4P 04/21/2017 Tdap Tetanus diptheria acell ular pertussis (Boostrix; Adacel) 7yo and older 03/26/2011 Surgical History Surgery Date Site/Laterality Comments OTHER SURGICAL HISTORY PROCEDURE: DENIES PREVIOUS SURGERY OTHER SURGICAL HISTORY PROCEDURE: [place] ECTOPIC CERVICAL W/EVACUATION OTHER SURGICAL HISTORY [...] drink = 0.6 oz pur e alcohol) Comments Unknown Sex and Gender Information Value Date Recorded Sex Assigned at Female 05/31/2025 7:48 AM EDT Legal Sex Female 3:33 PM EST Gender Identity Female 05/31/2025 7:48 AM EDT Sexual Orientation Not on file Obstetrics History Last Filed Vital Signs Vital Sign Reading Time Taken Comments Blood Pressure 113/90 05/31/2025 6:49 AM EDT Pulse 85 05/31/2025 6:49 AM EDT Temperature 37.1 C (98.8 F) 05/31/2025 6:49 AM EDT Respiratory Rate 18 05/31/2025 6:49 AM EDT Oxygen Saturation 97% 05/31/2025 7:34 AM EDT Inhaled Oxygen Concentration - - Weight 65.8 kg (145 lb) 05/31/2025 7:34 AM EDT Height 157.5 cm (5' 2 ) 05/31/2025 6:49 AM EDT Body Mass Index 26.52 05/31/2025 6:49 AM EDT Plan of Treatment Health Maintenance Due Date Last Done Comments Pneumococcal Vaccine: Pediatrics (0 to 5 Years) and At-Risk Patients (6 to 49 Years) (1 of 1 - PPSV23, PCV20, or PCV21) 2005 07/03/2001, 09/05/2000, 06/26/2000, Additional history exists Cervical Cancer Screening: Pap Smear 2020 DTaP,Tdap,and Td Vaccines (7 - Td or Tdap) 03/26/2021 03/26/2011, 08/08/2003, 12/09/2000, Additional history exists HIV Screening 07/31/2022 Hepatitis C Screening 07/31/2022 Social Influencers of Health Screening 07/31/2022 Depression Screening 09/01/2024 COVID-19 Vaccine ( season) 2025 10/31/2020 Influenza Vaccine (#1) 2025 , 08/22/2015, 06/11/2014, Additional history exists RSV Immunization Adult Patients (1 - 1-dose 75+ series) 2074 HIB Vaccines Completed 09/05/2000, 12/30, 1999, Additional history exists Hepatitis B Vaccines Completed 12/09/2000, 03/31/2000, 01/11/2000 IPV Vaccines Completed 08/08/2003, 12/2000, 1999, Additional history exists MMR Vaccines Completed 08/30/2004, 09/05/2000 Varicella Vaccines Completed 01/08/2008, 07/03/2000 Meningococcal ACWY Vaccine Completed 04/21/2017, HPV Vaccines Completed 01/05/2018, 10/02, 06/04/2012, Additional history exists Gonorrhea/Chlamydia Screening Discontinued 05/01/2020 Hepatitis A Vaccines Aged Out No long er eligible based on patient's age to complete this topic Meningococcal B Vaccine Aged Out No l onger eligible based on patient's age to complete this topic RSV Immunization Patients Under 20 months Aged Out No longer eligible based on patient's age to complete this topic Procedures Procedure Name Priority Date/Time Associated Diagnosis Comments GONORRHEA/CHLAMYDIA SCRREENING Routine 05/01/2020 from Last 3 Months or Most Recently Relevant to Health Maintenance Results * Hm Gonorrhea/Chlamydia Screening (05/01/2020) HM Gonorrhea/Chla mydia Screening abstracted Historical Provider MD HEALTH MAINTENANCE Final Result from Last 3 Months or Most Recently Relevant to Health Maintenance Insurance [facility] Care Teams Grinder Needle Tip Relationship Specialty Start Date End Date Marek Serrano MD [address] [place] [address] PCP - General 08/28/23
--- OUTSIDE RECORDS SUMMARY | 2025-07-22 13:52 | XMS_ITS | Clinical Summary ---
Author Organization [facility] Address [address] [place] [id number] Phone Care Team Providers Care Rug Frame Mounter Name Role Phone Laura Love MD Primary Care Provider [phone] Allergies No known active allergies Medications montelukast (SINGULAIR) 10 mg tablet take 1 tablet (10 mg) orally bedtime 10/14/2024 Active budesonide-form oterol 160-4.5 mcg/actuation inhaler TAKE 2 PUFFS INHALED 2 TIMES A DAY 10/20/2024 Active Active Problems No known active problems Social History Tobacco Use Types Packs/Day Years Used Date Smoking Tobacco: Never Assessed Education Answer Date Recorded Are you interested in more education? Not on mony e 12/06/2024 Are you concerned about learning? Not on file 12/06/2024 No 12/06/2024 No 12/06/2024 Digital Access Answer Date Recorded No 12/06/2024 No 12/06/2024 Reliable internet access at home? Not on file 12/06/2024 Device with a working camera? Not on file Comments Unknown Sex and Gender Information Value Date Recorded Sex Assigned at Not on file Legal Sex Female 8:47 PM EDT Gender Identity Not on file Sexual Orientation Not on file Last Filed Vital Signs Vital Sign Reading Time Taken Comments Blood Pressure 109/79 12/06/2024 8:23 AM EDT Pulse 94 12/06/2024 8:23 AM EDT Temperature 37.4 C (99.4 F) 12/06/2024 8:23 AM EDT Respiratory Rate 18 12/06/2024 8:23 AM EDT Oxygen Saturation 97% 12/06/2024 8:23 AM EDT Inhaled Oxygen Concentration - - Weight - - Height - - Body Mass Index - - Plan of Treatment Health Maintenance Due Date Last Done Comments DEPRESSION SCREENING 2011 SMOKING Hx and SMOKELESS TOB ACCO SCREENING 2012 HEPATITIS C SCREENING 2017 HIV ONE-TIME SCREENING (18-6 5 YEARS) 2017 HPV VACCINES (2 - 3-dose series) 02/02/2018 01/06/20 18 PAP SMEAR 2020 Adult Td,Tdap Booster 03/26/2021 03/26/2011 INFLUENZA VACCINE (#1) 2025 11/17/2020 COVID-19 VACCINE (2 - 2024-2 6 season) 2025 10/31/2020 MENINGOCOCCAL VACCINES (ACWY) Completed 04/21/2017 HEPATITIS A VACCINES Aged Out No long er eligible based on patient's age to complete this topic HIB VACCINES Aged Out No longer eligi ble based on patient's age to complete this topic MENINGOCOCCAL VACCINES (B) Aged Out N o longer eligible based on patient's age to complete this topic PNEUMOCOCCAL VACCINES (0-49 years) Aged Out No longer eligible based on patient's age to complete this topic Medical Devices [place] [id number] [place] [id number] [place] POS [facility] Care Teams Rug Frame Mounter Relationship Specialty Start Date End Date Laura Love MD [address] [place] [address] PCP - General Internal Medicine 12/06/24 Additional Source Comments The information contained in this document represents components of the legal health record. It is not the complete legal health record.[facility]
--- OUTSIDE RECORDS SUMMARY | 2025-07-22 13:52 | XMS_ITS | Data Portability ---
Author Organization GAIL Lund s, [address] Address [address] [place] [address] Assessment Encounter Date Assessment Date Assessment LastModified by Organization Details LastModified Time 03/30/2024 03/30/2024 Patient was seen in the office today for nausea. Reviewed history regarding recent illness, medications, symptoms, and physical exam. Studies ordered as below. Discussed plan with patient, who expresses understanding . Follow up as noted below. Not available 03/30/2024 08:32:48 Plan of Treatment Reminders Order Date Submit Date Provider Last Modified By Organization Details Last Modified Time Details Appointments None recorde d. Lab urinaly sis, dipstic k 2023 024 [email or web address] _[facility] [address], [address] [place] [address], [address], 4 08:28:38 pregnan cy test, urine 2023 024 [email or web address] _[facility] [address], [address] [place] [address], [address], 4 08:28:39 pregnan cy test, urine 2022 023 [email or web address] [address], [address] [place] [address], [address], 3 09:46:48 urinaly sis, dipstic k 2022 023 [email or web address] [address], [address] [facility], [place], [address], 3 09:46:49 Referral orthope dic surgeon referra l 2022 023 [facility] [address], [place], [address], 3 13:30:29 Procedures None recorde d. Surgeries None recorde d. Imaging None recorde d. Medication Orders ondanse flor 4 mg disinte grating tablet 2023 024 [facility]acy #[id number], [id number] [place], [address], 4 08:28:38 ondanse flor 4 mg disinte grating tablet [email or web address]/Pharmacy #[id number], [address] [place], [address], 4 08:14:54 Patient TargetsNo targets recorded. Patient Instructions Encounter Date Encounter Id Patient Instructions Last Modified By Organization Details Last Modified Time 10/08/2022 [id number] learning about rice (rest, ice, compression, and elevation) [email or web address] Not available 10/08/2022 11:51:13 achilles tendon injury [email or web address] Not available 10/08/2022 11:51:13 contusion: care instructions [email or web address] Not available 10/08/2022 11:51:13 learning about how to use crutches [email or web address] Not available 10/08/2022 11:51:13 Keep wound clean , dry and covered until healed. Change dressing daily and apply topical antibiotic ointment until healed. Check with your doctor regarding the date of your last tetanus immunization and whether or not you need a booster shot. Wear the justin wrap and use the crutches as instructed with no weight bearing until seen by orthopedics in follow-up. Elevate your foot as much as possible. Tylenol or ibuprofen may be taken per package instructions for pain. See printed instructions. A referral to orthopedics has been made for you. Call [facility] today for an appointment as soon as possible. See work note. Seek Emergency Medical evaluation for any signs of infection of your wound or for any other worsening symptoms. Not available 10/08/2022 11:57:09 03/10/2023 [id number] nausea and vomiting: care instructions [email or web address] Not available 03/10/2023 09:46:46 Try small amount s of clear liquids frequently. If vomiting occurs, wait 30-60 minutes before trying clear liquids again. Once you are able to tolerate clear liquids for at least 6 hours without vomiting, you can advance to a soft diet consisting of foods such as bananas, rice, applesauce, toast, crackers, and other foods rich in carbohydrates and low on fats and spices. If the diet is tolerated for 12-24 hours, you can slowly add other foods to your diet. If vomiting occurs, you should go back to clear liquids only and work your way back to a normal diet as outlined above. If much worse, you should seek treatment immediately. [email or web address] Not available 03/10/2023 09:04:31 03/30/2024 [id number] nausea and vomiting: care instructions Not available 03/30/2024 08:28:36 Try small amount s of clear liquids frequently. If vomiting occurs, wait 30-60 minutes before trying clear liquids again. Once you are able to tolerate clear liquids for at least 6 hours without vomiting, you can advance to a soft diet consisting of foods such as bananas, rice, applesauce, toast, crackers, and other foods rich in carbohydrates and low on fats and spices. If the diet is tolerated for 12-24 hours, you can slowly add other foods to your diet. If vomiting occurs, you should go back to clear liquids only and work your way back to a normal diet as outlined above. If much worse, you should seek treatment immediately. Not available 03/30/2024 08:14:19 Reason for Referral Orthopedic Surgeon Referral for Pain of right ankle joint Pain, swelling and tenderness right Achilles after blunt trauma. Achilles tendon functionally intact Referring Physician: Corine Brantley, Urgent Care, Encounter Date: 10/08/2022 Results Created Date Observation Date Name Description Value Unit Range Abnormal Flag Note LastModifiedBy Organization Detail LastModifiedTime 03/10/20 23 03/10/2023 urina lysis , dipst ick Unknown Analyte Normal = light yellow Not Available [address] [place], [address], 03/10/2023 09:09:35 03/10/20 23 03/10/2023 urina lysis , dipst ick Unknown Analyte Yellow Not Available [address] [place] [address] [address] [place], [address], 03/10/2023 09:09:35 03/10/20 23 03/10/2023 urina lysis , dipst ick Unknown Analyte Normal = clear Not Available [address] [place], [address], 03/10/2023 09:09:35 03/10/2003/10/2023 urina lysis , dipst ick Unknown Analyte Clear Not Available [address] [place] [address] [address] [place], [address], 03/10/2023 09:09:35 03/10/20 23 03/10/2023 urina lysis , dipst ick Unknown Analyte Normal = negati ve Not Available [address] [place], [address], 03/10/2023 09:09:35 03/10/20 23 03/10/2023 urina lysis , dipst ick Unknown Analyte Negati ve Not Available _[address]in [address] [place], [address], 03/10/2023 09:09:35 03/10/20 23 03/10/2023 urina lysis , dipst ick Unknown Analyte Normal = Negati ve Not Available _[address] [place], [address], 03/10/2023 09:09:35 03/10/20 23 03/10/2023 urina lysis , dipst ick Unknown Analyte Negati ve Not Available _[address] [place], [address], 03/10/2023 09:09:35 03/10/20 23 03/10/2023 urina lysis , dipst ick Unknown Analyte Normal = Negati ve Not Available _[address] [place], [address], 03/10/2023 09:09:35 03/10/20 23 03/10/2023 urina lysis , dipst ick Unknown Analyte Negati ve Not Available _[address]rin [address] [place], [address], 03/10/2023 09:09:35 03/10/20 23 03/10/2023 urina lysis , dipst ick Unknown Analyte Normal = 1.010, 1.015, 1.020 Not Available _[address] [place], [address], 03/10/2023 09:09:35 03/10/20 23 03/10/2023 urina lysis , dipst ick Unknown Analyte 1.020 Not Available [facility] [address] [place], [address], 03/10/2023 09:09:35 03/10/20 23 03/10/2023 urina lysis , dipst ick Unknown Analyte Normal = Negati ve Not Available _[address] [place], [address], 03/10/2023 09:09:35 03/10/20 23 03/10/2023 urina lysis , dipst ick Unknown Analyte Negati ve Not Available _[address] [place], [address], 03/10/2023 09:09:35 03/10/2003/10/2023 urina lysis , dipst ick Unknown Analyte Normal = 6.5, 7.0, 7.5, 8.0 Not Available dar[address]in [address] [place], [address], 03/10/2023 09:09:35 03/10/20 23 03/10/2023 urina lysis , dipst ick Unknown Analyte 7.0 Not Available [facility] [address] [place], [address], 03/10/2023 09:09:35 03/10/20 23 03/10/2023 urina lysis , dipst ick Unknown Analyte Normal = Negati ve Not Available dar[address]in [address] [place], [address], 03/10/2023 09:09:35 03/10/2003/10/2023 urina lysis , dipst ick Unknown Analyte Negati ve Not Available _[address] [place], [address], 03/10/2023 09:09:35 03/10/2003/10/2023 urina lysis , dipst ick Unknown Analyte Normal = 0.2, 1.0 Not Available _[address] [place], [address], 03/10/2023 09:09:35 03/10/2003/10/2023 urina lysis , dipst ick Unknown Analyte 0.2 E.U./d L Not Available sprin [address] [place], [address], 03/10/2023 09:09:35 03/10/20 23 03/10/2023 urina lysis , dipst ick Unknown Analyte Normal = Negati ve Not Available _[address] [place], [address], 03/10/2023 09:09:35 03/10/20 23 03/10/2023 urina lysis , dipst ick Unknown Analyte Negati ve Not Available _[address] [place], [address], 03/10/2023 09:09:35 03/10/20 23 03/10/2023 urina lysis , dipst ick Unknown Analyte Normal = Negati ve Not Available _[address] [place], [address], 03/10/2023 09:09:35 03/10/20 23 03/10/2023 urina lysis , dipst ick Unknown Analyte Trace Not Available _ [facility] [address] [place], [address], 03/10/2023 09:09:35 03/10/20 23 03/10/2023 pregn rolando test, urine Unknown Analyte Normal = Negati ve Not Available _[address] [place], [address], 03/10/2023 09:09:28 03/10/20 23 03/10/2023 pregn rolando test, urine Unknown Analyte negati ve Not Available _[address] [place], [address], 03/10/2023 09:09:28 03/30/20 24 03/30/2024 urina lysis , dipst ick Unknown Analyte Light Yellow Not Available _[address] [place], [address], 03/30/2024 08:17:51 03/30/20 24 03/30/2024 urina lysis , dipst ick Unknown Analyte Clear Not Available [address] [place] [address] [address] [place], [address], 03/30/2024 08:17:51 03/30/20 24 03/30/2024 urina lysis , dipst ick Unknown Analyte Negati ve Not Available [address] [place], [address], 03/30/2024 08:17:51 03/30/20 24 03/30/2024 urina lysis , dipst ick Unknown Analyte Negati ve Not Available [address] [place], [address], 03/30/2024 08:17:51 03/30/20 24 03/30/2024 urina lysis , dipst ick Unknown Analyte Negati ve Not Available [facility] [address] [place], [address], 03/30/2024 08:17:51 03/30/20 24 03/30/2024 urina lysis , dipst ick Unknown Analyte 1.025 Not Available [address] [place] [address] [address] [place], [address], 03/30/2024 08:17:51 03/30/20 24 03/30/2024 urina lysis , dipst ick Unknown Analyte Negati ve Not Available [address] [place], [address], 03/30/2024 08:17:51 03/30/20 24 03/30/2024 urina lysis , dipst ick Unknown Analyte 7.0 Not Available [address] [place] [address] [address] [place], [address], 03/30/2024 08:17:51 03/30/20 24 03/30/2024 urina lysis , dipst ick Unknown Analyte Negati ve Not Available [address] [place], [address], 03/30/2024 08:17:51 03/30/20 24 03/30/2024 urina lysis , dipst ick Unknown Analyte 0.2 E.U./d L Not Available [address] [place], [address], 03/30/2024 08:17:51 03/30/20 24 03/30/2024 urina lysis , dipst ick Unknown Analyte Negati ve Not Available [facility] [address] [place], [address], 03/30/2024 08:17:51 03/30/20 24 03/30/2024 urina lysis , dipst ick Unknown Analyte Negati ve Not Available [address] [place], [address], 03/30/2024 08:17:51 03/30/20 24 03/30/2024 pregn rolando test, urine Unknown Analyte negati ve Not Available [address] [place], [address], 03/30/2024 08:18:08 03/30/20 24 03/30/2024 pregn rolando test, urine Unknown Analyte yes Not Available [address] [place] [address] [address] [place], [address], 03/30/2024 08:18:08 Result Notes None recorded. Problems Name Problem SNOMED Code Status Onset Date Resolution Date Notes Provider Name and Address Organization Details Recorded Time Asthma 098589725 Active 023 GAIL Chow - [facility] 10/08/2022 10:31:03 Problem Notes None recorded. Medical Equipment None Reported. Allergies No known drug allergies Medications Name Sig Start Date Stop Date Status Note LastModified by Organization Details LastModified Time ondansetron 4 mg disintegrati ng tablet Place 1 tablet 3 times a day by translingua l route for 5 days. 2023 active Not Available Not Available Not Avai lable Symbicort 160 mcg-4.5 mcg/actuatio n HFA aerosol inhaler Inhale 2 puffs twice a day by inhalation route. active Not Available Not Available No t Available albuterol 90 mcg-budesoni de 80 mcg/actuatio n HFA aerosol inhaler Inhale by inhalation route. active Not Available Not Available No t Available Vitals Date Recorded Body height Body mass index (BMI) Body weight Oxygen saturation Heart rate Respiratory rate Body temperature Systolic And Diastolic Provider Name and Address Organization Details Last Updated DateTime 3 157.48 cm 25.6 kg/m2 07217.9 3 g 97 % 80 /min 18 /min 99 [degF] 111/73 mm[Hg] Anali REYNOLDS - [facility] 3 10:29:25 Date Recorded Body height Body mass index (BMI) Body weight Pain severity - 0-10 verbal numeric rating [Score] - Reported Oxygen saturation Heart rate Respiratory rate Body temperature Systolic And Diastolic Provider Name and Address Organization Details Last Updated DateTime 3 157.48 cm 25.6 kg/m2 37763.9 3 g 0 97 % 92 /min 19 /min 99.1 [degF] 116/68 mm[Hg] FABIAN DE LA PAZ PA [employer] [facility] 3 09:08:31 Date Recorded Body height Body mass index (BMI) Body weight Body temperature Respiratory rate Oxygen saturation Heart rate Systolic And Diastolic Provider Name and Address Organization Details Last Updated DateTime 4 157.48 cm 25.6 kg/m2 02298.9 3 g 98.17 [degF] 18 /min 99 % 79 /min 106/69 mm[Hg] Jillian Luna PA - [facility] 4 08:16:40 Social History Question Answer Notes LastModified by Organizat ion Details LastModified Time Tobacco Smoking Status Never Smoker FABIAN MAGDALENOVIOLETA null, PA - [facility] 03/10/2023 09:06:47 Which Illicit Or Recreational Drugs Have You Used? Marijuana Twice In A Day Information not available 03/10/2023 Have You Recently Traveled Abroad? No [email or web address] Information not available 10/08/2022 Sex: Unknown Functional Status Question Answer Note LastModified by Organizat ion Details LastModified Time Do you use any illicit or recreational drugs? Yes Information not available 03/10/2023 Do you or have you ever used any other forms of tobacco or nicotine? No [email or web address] Information not available 10/08/2022 What is your level of alcohol consumption? Occasional Information not available 03/10/2023 Are you currently employed? Yes Information not available 03/30/2024 Mental Status None recorded. Family History Relationship Description Onset Age of this Age Resolved Age Notes LastModified by Organization Details LastModified Time Maternal Grandmother Malignant neoplasm of uterus Not available 10/08 10:31:20 Medical History No medical history recorded. Gynecological History Statement/Question Response Date of LMP 03/23/2024 Is there any chance of ? Unsure LMP Approximate Obstetrics History GPAL:G 0 P 0 0 0 0 Immunizations Vaccine Type Date Status Note Provider Nam e and Address Organization Details Recorded Time COVID-19, mRNA, LNP-S, PF, 30 mcg/0.3 mL dose 1 completed Jillian Luna null, PA - [facility] 03/30/2024 08:14:35 Tdap 1 completed Jillian Luna null, PA - [facility] 03/30/2024 08:14:35 HPV, quadrivalent 8 completed Jillian Luna null, PA - [facility] 03/30/2024 08:14:35 meningococcal MCV4P 7 completed Jillian Luna null, PA - [facility] 03/30/2024 08:14:35 Influenza, split virus, quadrivalent, PF 1 completed Jillian Luna null, PA - [facility] 03/30/2024 08:14:35 Past Encounters Encounter ID Performer Location Encounter Start Date Encounter Closed Date Diagnosis/Indication Diagnosis SNOMED-CT Code Diagnosis ICD10 Code Diagnosis IMO Codes Diagnosis Note [id number] [address] [facility] [place] [address] 12/20/2021 09:24:22 12/20/2021 10:07:28 [id number] [address] [facility] [place] [address] 12/06/2021 08:07:10 12/06/2021 08:55:48 [id number] [facility] [address] [facility] [place] [address] 04/17/2020 09:42:39 04/17/2020 11:16:47 [id number] [address] [facility] [place] [address] 03/12/2022 08:20:43 03/12/2022 10:11:43 [id number] [address] [facility] [place] [address] 11/22/2021 08:51:22 11/22/2021 09:53:11 [id number] [address] [facility] [place] [address] 09/18/2021 11:04:20 09/18/2021 11:36:43 [id number] Corine Brantley MD [address] [facility] [place] [address] 10/08/2022 08:28:54 10/08/2022 12:00:29 Pain of right ankle joint [id number] M25.571 [id number] Shelton Sol MD [address] [facility] [place] [address] 03/10/2023 08:51:06 03/10/2023 09:48:10 Nausea and vomiting [id number] R11.2 Please follow up with PCP or Urgent Care in 3-5 days if no improvemen t or if any new symptoms occur that are concerning .Call 911 or go to nearest ER if you develop any shortness of breath, chest pain, severe headache, dizziness, or other concerning symptoms [id number] GAIL WOLF [address] [facility] [address] [facility] [place] [address] 03/30/2024 08:10:14 03/30/2024 08:30:26 Acute gastroenteritis 67686978 K52.9 Based on you exam and presentati on I am diagnosing you with a viral gastroente ritis. This should resolve on its own without any interventi on in 1-5 days. This may be contagious to try and avoid family members while you are sick. Use a seperate bathroom if possible. These are my recommenda tions to help with your symptoms and help you recover:1. Drink plenty of fluid and stay hydrated.2 . Wash hands and home surfaces regularly. 3. Do not share food or drinks4. Try to eat foods like toast, chicken broth, bananas.5. Stay away from Gatorade, but you can drink pedialyte, soda, or water.6. Avoid Dairy I would be seen again if you develop:1. Severe abdominal pain2. Vomiting more than 48 hours3. Fever > 101.04. Blood in Stool5. Blood in Urine. Thank you for using [facility] , please feel free to contact us if you have any questions or concerns. Health Concerns Section Related Observation LastModified by Organization Detai ls LastModified Time None Recorded Concern Status LastModified by Organization Details LastModified Time None Recorded Advance Directives Directive None Recorded Payers Insurance Date Sequence Insurance Name Policy Number Policy Kat Covered Member ID Kat Member ID Guarantor Name 03/10/2023 1 [facility] [id number] 1 Jazmin Knapp [id number] Jazmin Knapp 03/30/[address] [place] [address] [id number] Micheal Ulrich [id number] Jazmin Knapp Notes Date Note Type Note Provider Name and Address Organization Details Recorded Time 023 text/ht ml Foot/Ankle UCReported by PatientHPIFor associated symptoms, patient reportsswellingandecchymosisbut reportsno weakness,no numbness,no tingling,no redness, andno warmth. For source of patient information, patient reportsinformation obtained from patientandpatient arrived at urgent care ambulatory. For location, patient reportsrightandankle. For problem, patient reportsinjuryandswelling. For severity, patient reportsmoderate. For duration, patient reports2 days. For aggravating factors, patient reportsextension,flexion,standing, andwalking. For alleviating factors, patient reportselevationandlimited weight bearing. For previous injury, patient reportsno prior injury to affected body part. For previous treatment, patient reportsnone. For prior imaging, patient reportsnone. For context, (back of ankle accidentally hit by door.). For assistive devices, (none).22 year old female presenting for evaluation of right posterior ankle (Achilles) pain and swelling beginning after the back of her ankle was accidentally struck by a door. She suffered a superficial laceration to the area which she has kept clean and has been applying neosporin and a band aid. No numbness or weakness of the extremity but her right posterior ankle pain is worse with movement, palpation and weight bearing. No redness, bleeding, drainage, red streaking. She thinks her tetanus immunization is up to date but is not sure and will check with her doctor.ROS as noted in the HPI Corine Brantley MD [address] [place] [address] Ethan Phippstoserafin [place], [address], PA - [facility] 10/08/2022 12:08:34 023 text/ht ml Headache UCReported by PatientHPIFor associated symptoms, patient reportsvomitingbut reportsno sore throatandno cold symptoms. For source of patient information, patient reportspatient arrived at urgent care ambulatoryandpatient. For quality, patient reportsnot the worst headache ever. Nausea / Vomiting UCReported by PatientHPI:For duration, patient reports1 days. For associated symptoms, patient reportsno abdominal pain,no fever,no chills,no diarrhea,no heartburn,no dark tarry stools, andno fatigue. Shelton Sol MD [address] [place], [address], PA - [facility] 03/10/2023 12:37:55 024 text/ht ml 23 y/o female here with nausea, vomiting, and diarrhea for the past 3 days, improving. She has had some night sweats, but no chills GAIL Pendleton [address] [place], [address], PA [facility] 03/30/2024 08:33:13 OBGyn Episode No OBEpisode recorded.
== END 2025-07-22 13:56 | disposition home or self-care (01) ==
LOC: HO.HPS 13:32
PROVIDERS: PCP Internal Medicine Sports Medicine; Visit Provider Internal Medicine Pulmonary Disease
DX: J45.50 Severe persistent asthma, uncomplicated (principal); Z91.09 Other allergy status, other than to drugs and biological substances
CPT/HCPCS: 99214